=== PATIENT | male | born 1995 | race Caucasian/White ===

== ENCOUNTER 2018-01-25 00:47 | Day surgery (SDC) | payer BC ==
[~2018-01-25] VITALS: Ht 185.4 cm; Wt 92.5 kg
[~2018-01-25 00:47] MED LIST: METH36 PO
[2018-01-25] MEDS ORDERED: fentaNYL CITR 250 MCG/5 ML AMP ONE (06:35)
[2018-01-25] MEDS ORDERED: ONDANSETRON 4 MG/2 ML VIAL ONE (06:36)
[2018-01-25] MEDS ORDERED: LIDOCAINE MPF 1% 5 ML VIAL ONE (06:36)
[2018-01-25] MEDS ORDERED: PROPOFOL EMUL(*) 10MG/ML 20 ML 20 ML ONE (06:36)
[2018-01-25] MEDS ORDERED: DEXAMETHASONE SOD 4 MG/ML VIAL ONE (06:37)
[2018-01-25 08:30] VITALS: BP 144/84
[2018-01-25] MEDS ORDERED: MIDAZOLAM 2 MG/2 ML VIAL IVP PRN (09:00)
[2018-01-25] MEDS ORDERED: FAMOTIDINE 20 MG TAB PO ONE (09:00)
[2018-01-25] MEDS ORDERED: NORMOSOL R SOLN(*) 1000 ML BAG 1,000 ML IV PRN (09:00)
[2018-01-25] MEDS ORDERED: LIDOCAINE/SOD BICARB 8.4% SYR ID ONE (09:00)
[2018-01-25] MEDS ORDERED: HALOPERIDOL LACT 5 MG/ML VIAL IM ONE (09:24)
[2018-01-25] MEDS ORDERED: OXYMETAZOLINE SPRAY 15 ML BTL ONE (09:26)
[2018-01-25] MEDS ORDERED: LIDO/EPI 1% MDV 1:100,000 20ML INFIL ONE (09:26)
[2018-01-25] MEDS ORDERED: BACITRACIN OINT 15 GM TUBE TP ONE (09:26)
[2018-01-25] MEDS ORDERED: NS(*) 0.9% 100 ML BAG 100 ML ONE (09:27)
[2018-01-25] MEDS ORDERED: HYDR-385 PO (11:07)
[2018-01-25] MEDS ORDERED: CEFU500T10 PO (11:08)
[2018-01-25 11:44] VITALS: BP 134/91
[2018-01-25] MEDS ORDERED: APAP/HYDROCODONE 325/5 TAB PO PRN (11:55)
[2018-01-25 12:15] VITALS: BP 145/73
[2018-01-25 12:40] VITALS: BP 135/92
[2018-01-25 12:41] VITALS: BP 131/79
--- NOTE | 2018-01-25 13:13 | OPERATIVE REPORT 1 ---
EVENT DATE: January 25, 2018 SURGEON: Ej Garza Jr., MD ANESTHESIOLOGIST: Nicolsa Scott MD ANESTHESIA: LMA. PROCEDURE PERFORMED Open reduction of nasal and septal fractures. PREOPERATIVE DIAGNOSES 1. Nasal fracture. 2. Septal fracture. POSTOPERATIVE DIAGNOSES 1. Nasal fracture. 2. Septal fracture. INDICATIONS Please refer to the preoperative note. DESCRIPTION OF PROCEDURE The patient was positively identified in the preoperative area. He was accompanied there by his mother. Risks and benefits were explained including, but not limited to, bleeding, infection, nasoseptal perforation, poor cosmetic result and those associated with anesthesia. He acknowledged understanding of those risks. He was then brought back to the operating room, laid supine on the operating table and anesthesia was administered. Once asleep, the patient was positioned, prepped and draped in the usual sterile fashion. I initially decongested the nose by injecting approximately 10 cc's of 1% lidocaine with epinephrine to the bilateral anterior nasoseptal mucosa and intercartilaginously along the lateral margin of the nasal bones. Both nasal cavities were subsequently packed with cottonoids containing Afrin solution. These were subsequently removed and nasal endoscopy was performed. This was notable for severe left nasal septal deviation. A Ladora incision was made in the left anterior nasoseptal mucosa. Subperichondrial flap was elevated. Incision was then made in the anterior nasoseptal cartilage approximately 5 mm posterior to the original Himanshu incision. A contralateral flap was raised and the deviated portion of patient's nasal septal cartilage and bone was then removed. The Ladora incision was then reapproximated with interrupt Chromic suture. Bilateral intercartilaginous stab incisions were then made with #15 blade. I then elevated the soft tissue envelope off the underlying bony nasal pyramid with a Maxi scissor. Bilateral lateral and medial osteotomies were then performed. The bony nasal pyramid was then manually reduced into the midline. Rasps were then used to smooth the bony contour. The stab incisions were then reapproximated with interrupted Chromic stitch. Bilateral nasal septal splints were then placed and secured to the Chromic suture. Rigid Thermoplastic splint was placed on the external nose. The patient was then returned to Anesthesia for emergency. ESTIMATED BLOOD LOSS 25 cc. COMPLICATIONS No complications. MTDD
== END 2018-01-25 11:44 | disposition home or self-care (01) ==
LOC: OR 00:47
PROVIDERS: ATTEND Otolaryngology
DX: S02.2XXA Fracture of nasal bones, initial encounter for closed fracture (principal); X58.XXXA Exposure to other specified factors, initial encounter
CPT/HCPCS: 21336; J1100; J1630; J2001; J2250; J2405; J2704; J3010; J7050